=== PATIENT | male | born 1965 | race Caucasian/White ===

== ENCOUNTER → 2016-10-02 19:32 | Outpatient (CLI) | payer BC ==
[2016-10-02 19:54] LABS: CHOL - HDL RATIO 4.9 ratio (2.3-4.9); LDL-HDL RATIO 3.4 ratio (1.5-3.5)
== END | disposition home or self-care (01) ==
LOC: D.LABREF 19:32
PROVIDERS: Internal Medicine Cardiovascular Disease
DX: E78.5 Hyperlipidemia, unspecified (principal)